=== PATIENT | male | born 1970 | race Caucasian/White ===

== ENCOUNTER 2017-03-25 10:32 | Emergency (ER) | payer OTHER ==
[~2017-03-25] VITALS: Ht 177.8 cm; Wt 75.0 kg
[~2017-03-25 10:32] MED LIST: DAPT500V6 IV; HYDR-3240 PO
[2017-03-25 10:44] VITALS: BP 106/62
[2017-03-25 12:01] LABS: BLOOD UREA NITROGEN 12 mg/dL (7-18)
== END 2017-03-25 12:35 | disposition home or self-care (01) ==
LOC: ED 11:54
DX: M25.561 Pain in right knee (principal); M54.30 Sciatica, unspecified side
CPT/HCPCS: 36415; 80048; 82040; 84550; 85025; 99285

== ENCOUNTER 2019-09-13 09:16 | Emergency (ER) | payer MEDICAID, OTHER ==
[~2019-09-13] VITALS: Ht 177.8 cm; Wt 73.3 kg
[2019-09-13 09:26] VITALS: BP 121/79
== END 2019-09-13 10:11 | disposition home or self-care (01) ==
LOC: ED 10:10
DX: H65.02 Acute serous otitis media, left ear (principal); H60.502 Unspecified acute noninfective otitis externa, left ear; H60.12 Cellulitis of left external ear; L01.01 Non-bullous impetigo; F17.200 Nicotine dependence, unspecified, uncomplicated; Z86.14 Personal history of Methicillin resistant Staphylococcus aureus infection
CPT/HCPCS: 99283